=== PATIENT | male | born 1965 | race African-American/Black ===

== ENCOUNTER 2018-07-06 04:19 | Observation (INO) | payer SELFPAY ==
[2018-07-06 05:15] LABS: INR 0.98; PROTHROMBIN TIME 13.1 SECONDS (12.1-14.4)
[2018-07-06 05:16] LABS: BASO # 0.1 10^3/uL (0.0-0.2); BASO % 0.7 % (0.0-1.0); EOS % 0.2 % (0.0-3.0); HEMATOCRIT 49.9 % (42.0-52.0); HEMOGLOBIN 16.2 g/dl (13.5-17.5); IMMATURE GRANULOCYTE % 0.4 % (0-3.0); LYMPH # 3.1 10^3/uL (1.5-4.5); LYMPH % 30.3 % (24.0-44.0); MEAN CORPUSCULAR HEMOGLOBIN 28.9 pg (27.0-33.0); MEAN CORPUSCULAR HGB CONC 32.5 g/dl (32.0-36.5); MEAN CORPUSCULAR VOLUME 88.9 fl (80.0-96.0); MONO # 0.5 10^3/uL (0.0-0.8); MONO % 4.5 % (0.0-5.0); NEUTROPHILS # 6.5 10^3/uL (1.8-7.7); NEUTROPHILS % 63.9 % (36.0-66.0); PLATELET COUNT, AUTOMATED 315 10^3/uL (150-450); RED BLOOD COUNT 5.61 10^6/uL (4.30-6.10); RED CELL DISTRIBUTION WIDTH 12.6 % (11.5-14.5); WHITE BLOOD COUNT 10.1 10^3/uL (4.0-10.0)
[2018-07-06 05:30] LABS: ANION GAP 10 MEQ/L (8-16); BLOOD UREA NITROGEN 8 MG/DL (7-18); CALCIUM LEVEL 8.8 MG/DL (8.5-10.1); CARBON DIOXIDE LEVEL 23 MEQ/L (21-32); CHLORIDE LEVEL 110 MEQ/L (98-107); CPK CREATINE PHOSPHOKINASE 161 U/L (39-308); ETHYL ALCOHOL (ETHANOL) 0.207 % (0.000-0.010); GLOMERULAR FILTRATION RATE > 60.0 (>56); GLUCOSE, FASTING 112 MG/DL (70-100); MB/CK RELATIVE INDEX 0.68 (< OR =4); POTASSIUM SERUM 4.3 MEQ/L (3.5-5.1); SODIUM LEVEL 143 MEQ/L (136-145); TROPONIN I < 0.02 NG/ML (< 0.10)
[2018-07-06] MEDS: ONDANSETRON 4MG/2ML VIAL (J2405) IV (05:34)
[2018-07-06] MEDS: hydrALAZINE INJ 20 MG/ML VIAL IV (05:34)
[2018-07-06] MEDS: MORPHINE 2 MG/ML 1ML SYRINGE (J2270) IV (05:35)
[2018-07-06 06:02] LABS: BEDSIDE GLUCOSE 112 MG/DL (70-105)
[2018-07-06] MEDS: METOCLOPRAMIDE INJ 10MG/2ML VIAL (J2765) IV (06:15)
[2018-07-06] MEDS: ENOXAPARIN 40 MG/0.4 ML SYRINGE (J1650) SC (09:00)
[2018-07-06] MEDS: NS 1,000 ML IV ×2 (09:22→19:50)
[2018-07-06] MEDS ORDERED: ONDANSETRON 4 MG TAB (S0181) PO (09:30)
[2018-07-06] MEDS ORDERED: ISOVUE-370 76% 100ML VIAL (Q9967) As Ordered (09:37)
[2018-07-06 14:07] LABS: CHOLESTEROL LEVEL 179 MG/DL (<200); CHOLESTEROL RISK RATIO 3.196 (<5); HDL CHOLESTEROL 56 MG/DL (>40); LDL CHOLESTEROL 82 MG/DL (<100); NON-HDL-C 123 MG/DL; TRIGLYCERIDES LEVEL 204 MG/DL (<150)
[2018-07-06] MEDS: ACETAMINOPHEN TAB 650MG DOSE (2X325MG) PO (14:14)
[2018-07-06] MEDS: ATORVASTATIN 20 MG TAB PO (14:14)
[2018-07-06] MEDS: ASPIRIN 81 MG CHEW TABLET PO (14:14)
[2018-07-07] MEDS: NS 1,000 ML IV (05:57)
[2018-07-07 05:58] LABS: HEMATOCRIT 47.7 % (42.0-52.0); HEMOGLOBIN 15.5 g/dl (13.5-17.5); MEAN CORPUSCULAR HEMOGLOBIN 29.1 pg (27.0-33.0); MEAN CORPUSCULAR HGB CONC 32.5 g/dl (32.0-36.5); MEAN CORPUSCULAR VOLUME 89.5 fl (80.0-96.0); PLATELET COUNT, AUTOMATED 256 10^3/uL (150-450); RED BLOOD COUNT 5.33 10^6/uL (4.30-6.10); RED CELL DISTRIBUTION WIDTH 12.5 % (11.5-14.5); WHITE BLOOD COUNT 10.9 10^3/uL (4.0-10.0)
[2018-07-07 06:25] LABS: ANION GAP 8 MEQ/L (8-16); BLOOD UREA NITROGEN 7 MG/DL (7-18); CALCIUM LEVEL 8.6 MG/DL (8.5-10.1); CARBON DIOXIDE LEVEL 24 MEQ/L (21-32); CHLORIDE LEVEL 109 MEQ/L (98-107); CREATININE FOR GFR 0.96 MG/DL (0.70-1.30); GLOMERULAR FILTRATION RATE > 60.0 (>56); GLUCOSE, FASTING 93 MG/DL (70-100); POTASSIUM SERUM 3.7 MEQ/L (3.5-5.1); SODIUM LEVEL 141 MEQ/L (136-145)
[2018-07-07] MEDS: ENOXAPARIN 40 MG/0.4 ML SYRINGE (J1650) SC (09:00)
[2018-07-07] MEDS: ATORVASTATIN 20 MG TAB PO (09:04)
[2018-07-07] MEDS: ASPIRIN 81 MG CHEW TABLET PO (09:04)
[2018-07-07] MEDS: **hydrALAZINE** 10 MG TAB PO (11:12)
== END 2018-07-07 13:35 | disposition home or self-care (01) ==
LOC: M ED 04:19 → M ED INP 07:50 → M PCU 12:08
DX: G45.9 Transient cerebral ischemic attack, unspecified (principal); F10.220 Alcohol dependence with intoxication, uncomplicated; I49.5 Sick sinus syndrome; F17.210 Nicotine dependence, cigarettes, uncomplicated
CPT/HCPCS: J2405

== ENCOUNTER → 2019-03-24 | Outpatient (CLI) | payer SELFPAY ==
[~2019-03-24] MED LIST: ASPI-286 PO; ATOR1TAB21 PO
== END ==
LOC: M OUTALCOH 08:22
PROVIDERS: ATTEND Psychiatry & Neurology Psychiatry
DX: Z03.89 Encounter for observation for other suspected diseases and conditions ruled out (principal)

== ENCOUNTER 2019-03-31 08:19 | Outpatient (RCR) | payer SELFPAY | END 2019-04-10 | LOC: M OUTALCOH 08:19 | PROVIDERS: ATTEND Psychiatry & Neurology Psychiatry | DX: Z03.89 Encounter for observation for other suspected diseases and conditions ruled out (principal) ==